=== PATIENT | female | born 1995 | race Caucasian/White ===

== ENCOUNTER → 2020-05-18 | Outpatient (CLI) | payer BC ==
[~2020-05-18] MED LIST: DOXYCYCLINE 10100 MG PO; OMNICEF 300MG300 MG PO; ZOFRAN 4MG T4 MG/TAB PO
== END ==
LOC: COL.RAD 07:23
DX: N92.6 Irregular menstruation, unspecified (principal)

== ENCOUNTER 2021-10-25 10:33 | Day surgery (SDC) | payer BC ==
[~2021-10-25] VITALS: Ht 180.3 cm; Wt 123.8 kg
[2021-10-25] MEDS ORDERED: HAILEY FE 1-201 EACH PO (11:13)
[2021-10-25] MEDS ORDERED: ZOFRAN 4MG T4 MG/TAB PO (11:14)
--- NOTE | 2021-10-25 11:51 | NUR ---
Patient is having issues supplying HCG urine sample, and requested a pilgrim hat to assist with sample collection.
[2021-10-25 12:17] VITALS: BP 132/84; PULSE 84; TEMP 98.9
--- NOTE | 2021-10-25 12:19 | NUR ---
Urine HCG sent to lab.
[2021-10-25 12:25] LABS: ALBUMIN 4.4 gm/dL (3.5-5.0); BILIRUBIN,TOTAL 0.4 mg/dL (0.2-1.2); CALCIUM 9.5 mg/dL (8.4-10.2); CREATININE, serum 0.92 mg/dL (0.57-1.11); POTASSIUM 4.2 mmol/L (3.5-4.5); TOTAL PROTEIN 8.1 gm/dL (6.2-8.1)
--- NOTE | 2021-10-25 12:25 | NUR ---
HCG results NEGATIVE.
[2021-10-25] MEDS ORDERED: NORCO 325 MG-51 TAB PO (15:01)
[2021-10-25 15:50] VITALS: BP 125/67; PULSE 74; TEMP 97.7
--- NOTE | 2021-10-25 15:50 | NUR ---
Patient arrived from PACU drowsy but oriented with nausea, but no vomiting. Vitals obtained and are WNL. x4 lap sites are clean and dry, closed with skin glue. Bandages applied are without drainage. Lights dimmed to provide comfort. Call jensen is within reach on her lap. Patient verbalized understanding how to use her call jensen. Verbal report obtained from CHARLES Hemphill.
[2021-10-25 16:05] VITALS: BP 130/67; PULSE 82
--- NOTE | 2021-10-25 16:05 | NUR ---
Patient sleeps unless aroused. Vitals obtained and are WNL. Call jensen remains within reach.
[2021-10-25 16:20] VITALS: BP 128/72; PULSE 84
--- NOTE | 2021-10-25 16:20 | NUR ---
Vitals obtained. The patient took a few sips of water. No vomiting. Patient states some nausea.
--- NOTE | 2021-10-25 16:35 | NUR ---
Vitals obtained. The patient is resting with her eyes closed. Patient can answer basic questions. States pain is 6/10 in lower right side. Requested [employer] to drink and is tolerating it. Will continue to monitor per intervals. Call jensen remains within reach.
[2021-10-25 17:05] VITALS: BP 132/79; PULSE 87
--- NOTE | 2021-10-25 17:05 | NUR ---
Vitals obtained. Patient states continued nausea. Zofran administered. No vomiting. The patient was assisted to bedside to sit due to lower back pain. Then assisted back to bed. Call jensen remains within reach.
--- NOTE | 2021-10-25 17:18 | NUR ---
PO medication administered
--- NOTE | 2021-10-25 17:27 | NUR ---
Patient was assisted to bedside commode. Call jensen is witin reach. The patient verbalized understanding to not to get up without the RN and to use call jensen to let her know she is done.
--- NOTE | 2021-10-25 17:35 | NUR ---
Patient was unable to void in bedside commode. She was assisted with ambulating to bathroom, where she was able to successfully void. Then the patient was minimally assisted getting back to bed. Her Griffin was escorted to her room. IV was then discontinued. Catheter tip intact. Pressure bandage applied. No redness or swelling noted. DC instructions and educational material was reviewed with the patient and Griffin. Both verbalized understanding and the patient signed the related paperwork. Both denied having any questions or concerns. The patient was assisted with changing into her personal clothes and then dismssed from [facility] via [place] to the ED entrence and transferred into the care of Griffin. The patient has her personal belongings and DC packet.
[2021-10-25 17:46] VITALS: BP 128/73; PULSE 79
== END 2021-10-25 18:05 | disposition home or self-care (01) ==
LOC: SDCO 10:33
PROVIDERS: Surgery
DX: K80.10 Calculus of gallbladder with chronic cholecystitis without obstruction (principal)
CPT/HCPCS: J0690; J1100; J1170; J1885; J2250; J2405; J2550; J2704; J3010; J7120

== ENCOUNTER → 2022-04-18 | Outpatient (CLI) | payer BC ==
[~2022-04-18] MED LIST changes: +HAILEY FE 1-201 EACH PO; +NORCO 325 MG-51 TAB PO
== END ==
LOC: COL.RAD 14:39
DX: M48.061 Spinal stenosis, lumbar region without neurogenic claudication (principal); N15.9 Renal tubulo-interstitial disease, unspecified; Z90.49 Acquired absence of other specified parts of digestive tract
CPT/HCPCS: Q9967